=== PATIENT | male | born 1965 | race Caucasian/White ===

== ENCOUNTER 2018-12-30 10:03 | Inpatient (IN) | payer OTHER ==
[~2018-12-30] VITALS: Ht 182.9 cm; Wt 98.5 kg
[2018-12-30 10:10] VITALS: Ht 182.9 cm; Wt 98.5 kg
[2018-12-30 11:00] LABS: BASOPHIL % 0.5 % (0-2); PLATELET COUNT 286 x10^3mcL (130-400); RED CELL DISTRIBUTION WIDTH 13.1 % (11.5-14.5)
[2018-12-30 11:14] LABS: CALCIUM 8.6 mg/dL (8.5-10.1); CARBON DIOXIDE 32.8 mmol/L (21-32); CHLORIDE SERUM 102 mmol/L (98-107); CREATININE SERUM 1.1 mg/dL (0.7-1.3); GFR1 > 60 mL/min; GLUCOSE SERUM 108 mg/dL (74-106); POTASSIUM SERUM 4.4 mmol/L (3.5-5.1); SODIUM SERUM 138 mmol/L (136-145)
[2018-12-30 11:19] LABS: ALBUMIN 3.7 g/dL (3.4-5.0); ALKALINE PHOSPHATASE 65 U/L (46-116); ALT/SGPT 35 U/L (16-63); AST/SGOT 18 U/L (15-37); BILIRUBIN TOTAL 0.36 mg/dL (0.20-1.00); TOTAL PROTEIN, SERUM 7.1 g/dL (6.4-8.2)
[2018-12-30 15:15] VITALS: BP 142/103
[2018-12-30 17:26] VITALS: BP 133/73
[2018-12-30 21:38] VITALS: BP 142/92
[2018-12-31 06:11] VITALS: BP 129/67
[2018-12-31 06:37] LABS: BASOPHIL % 0.5 % (0-2); PLATELET COUNT 262 x10^3mcL (130-400)
[2018-12-31 06:45] LABS: CALCIUM 8.3 mg/dL (8.5-10.1); CARBON DIOXIDE 32.3 mmol/L (21-32); CHLORIDE SERUM 105 mmol/L (98-107); CREATININE SERUM 1.1 mg/dL (0.7-1.3); GFR1 > 60 mL/min; GLUCOSE SERUM 110 mg/dL (74-106); POTASSIUM SERUM 4.2 mmol/L (3.5-5.1); SODIUM SERUM 141 mmol/L (136-145)
[2018-12-31 09:10] VITALS: BP 145/81
[2018-12-31 17:21] VITALS: BP 147/83
[2018-12-31 21:15] VITALS: BP 115/82
[2019-01-01 06:00] VITALS: BP 100/71
[2019-01-01 06:29] LABS: BASOPHIL % 0.5 % (0-2); PLATELET COUNT 250 x10^3mcL (130-400)
[2019-01-01 06:32] LABS: CALCIUM 8.5 mg/dL (8.5-10.1); CARBON DIOXIDE 31.7 mmol/L (21-32); CHLORIDE SERUM 105 mmol/L (98-107); CREATININE SERUM 1.2 mg/dL (0.7-1.3); GFR1 > 60 mL/min; GLUCOSE SERUM 115 mg/dL (74-106); POTASSIUM SERUM 4.8 mmol/L (3.5-5.1); SODIUM SERUM 140 mmol/L (136-145)
[2019-01-01 09:58] VITALS: BP 122/88
[2019-01-01 17:10] VITALS: BP 131/90
[2019-01-01 19:20] VITALS: BP 133/99
[2019-01-02 05:28] VITALS: BP 105/68
[2019-01-02 08:47] VITALS: BP 111/61
[2019-01-02 16:24] VITALS: BP 116/77
[2019-01-02 19:50] VITALS: BP 120/77
[2019-01-03 06:37] VITALS: BP 108/74
[2019-01-03 07:38] VITALS: BP 139/92
[2019-01-03 18:00] VITALS: BP 139/92
[2019-01-04 06:17] VITALS: BP 106/64; BP 108/58
[2019-01-04 06:52] VITALS: BP 108/58
[2019-01-04 08:21] VITALS: BP 139/92
[2019-01-04 10:11] VITALS: BP 100/64
== END 2019-01-04 12:26 | DRG 552 ==
LOC: ED 10:03 → MU 11:53
PROVIDERS: Emergency Medicine; Internal Medicine; ADMIT Internal Medicine
DX: M51.86 Other intervertebral disc disorders, lumbar region (principal); E78.5 Hyperlipidemia, unspecified; K59.00 Constipation, unspecified; G89.29 Other chronic pain
CPT/HCPCS: 97110-GP; 97116-GP; 97530-GP; C9113; J1885; J7030